=== PATIENT | female | born 1955 | race Caucasian/White ===

== ENCOUNTER 2016-10-25 05:15 | Emergency (ER) | payer OTHER ==
[~2016-10-25] VITALS: Ht 175.3 cm; Wt 65.8 kg
[2016-10-25 05:19] VITALS: BP 149/75
--- NOTE | 2016-10-25 05:26 | NUR ---
PT. AMBULATES TO ER BED 6
--- NOTE | 2016-10-25 05:26 | NUR ---
Patient being evaluated by physician at bedside.
--- NOTE | 2016-10-25 05:29 | NUR ---
61Y/F PT. PRESENTS TO ED WITH C/O BOTH FEET PAIN X 1 WK. AAO X4, AMBULATORY WITH STEADY GAIT. SKIN WARM AND DRY, NO INJURY. NO S/SX OF DISTRESS NOTED. ER MD MADE AWARE OF PT. STATUS.
[2016-10-25] MEDS ORDERED: KETOROLAC 60 MG/2 ML VIAL IM ONE (05:30)
[2016-10-25 05:54] VITALS: BP 149/75
--- NOTE | 2016-10-25 05:54 | NUR ---
Patient discharged with v/s stable. Written and verbal after care instructions given and explained. Patient alert, oriented and verbalized understanding of instructions. Ambulatory with steady gait. All questions addressed prior to discharge. ID band removed. Patient advised to follow up with PMD. Rx of MOTRIN 800 MG given. Patient educated on indication of medication including possible reaction and side effects. Opportunity to ask questions provided and answered.
== END 2016-10-25 05:54 | disposition home or self-care (01) ==
LOC: MED 05:15
DX: R60.0 Localized edema (principal); R03.0 Elevated blood-pressure reading, without diagnosis of hypertension
CPT/HCPCS: 96372; 99283; J1885

== ENCOUNTER 2016-11-22 18:23 | Emergency (ER) | payer OTHER ==
[~2016-11-22] VITALS: Ht 175.3 cm; Wt 65.8 kg
[2016-11-22 18:47] VITALS: BP 163/79
--- NOTE | 2016-11-22 19:50 | NUR ---
PT TAKEN TO BED 6
--- NOTE | 2016-11-22 19:54 | NUR ---
61 Y/O F W/C/O RIGHT ANKLE/FOOT PAIN/SWELLING SINCE LAST NOC. PT DENIES ANY FALL OR TRAUMA, WELL PAIN OR SOB. NO MED HX.
--- NOTE | 2016-11-22 20:09 | NUR ---
X-Ray at bedside.
--- NOTE | 2016-11-22 20:46 | NUR ---
Dr. Altman evaluating patient at bedside.
[2016-11-22] MEDS ORDERED: cefTRIAXone 1,000 MG in LIDOCAINE 1% ED 2.1 ML IM ONE (21:05)
[2016-11-22 21:10] VITALS: BP 151/74
== END 2016-11-22 21:10 | disposition home or self-care (01) ==
LOC: MED 18:23
DX: L03.115 Cellulitis of right lower limb (principal)
CPT/HCPCS: 99283; J0696; J2001

== ENCOUNTER 2017-06-22 14:51 | Emergency (ER) | payer OTHER ==
[~2017-06-22] VITALS: Ht 175.3 cm; Wt 65.8 kg
[2017-06-22 14:54] VITALS: BP 129/77
--- NOTE | 2017-06-22 15:10 | NUR ---
PT. BIB [facility] W/ C/O WEAKNESS. PT. AAOX4. PT. STATES " NOTHING IS WRONG WITH ME I JUST FELT A LITTLE WEAK BECAUSE MY SON MADE ME WALK FAR AND I GOT TIRED, BUT I DO NOT FEEL WEAK ANYMORE I FEEL FINE." PT. CAME IN WITH URINE AND POOP ON HER CLOTHES WHEN ASKED IF SHE WAS INCONTINENT SHE SAID " NO I AM NOT I JUST HAD TO GO TO THE BATHROOM REALLY BAD WHEN WE WERE WALKING AND I WAS TRYING TO HOLD IT ". RR EVEN AND UNLABORED , CLEAR LUNG SOUNDS, N/V/D NONE AT THE MOMENT, DENIES CHEST PAIN, DENIES SOB. ER. MADE AWARE. WILL CONTINUE TO MONITOR.
[2017-06-22] MEDS ORDERED: IBUPROFEN 800 MG TAB PO ONE (15:55)
[2017-06-22 16:16] VITALS: BP 117/93
--- NOTE | 2017-06-22 16:16 | NUR ---
Pt left hospital without papework. States " I dont wanna wait" Dr Yanes informed
== END 2017-06-22 16:16 | disposition home or self-care (01) ==
LOC: MED 14:51
DX: M25.562 Pain in left knee (principal)
CPT/HCPCS: 82948; 99283

== ENCOUNTER 2017-12-12 09:25 | Emergency (ER) | payer OTHER ==
[~2017-12-12] VITALS: Ht 175.3 cm; Wt 65.8 kg
[2017-12-12 09:31] VITALS: BP 158/87
--- NOTE | 2017-12-12 09:35 | NUR ---
PT AMBULATED TO BED 2
--- NOTE | 2017-12-12 09:36 | NUR ---
PT. CAME INTO THE ED DUE TO L SHOUDLER PAIN X THIS MORNING. PT. DENIES ANY INJURY, DENIES ANY CHEST PAIN, SOB. 12/05 L SHOULDER PAIN THAT RADIATES DOWN ARM. PT. STATES " I THINK I SLEPT IN IT WRONG ONLY". PT DENIES N/V/D. SWELLING NOTED TO L SHOULDER NO REDNESS. CAP REFILL LESS THAN 3 SEC. ER MD NOTIFIED. WILL CONTINUE TO MONITOR. SAFEGTY PRECAUTIONS IMPLEMETED. FAMILY MEMBERS AT BEDSIDE. WILL CONTINUE TO MONITOR.
[2017-12-12 09:45] VITALS: BP 158/87
--- NOTE | 2017-12-12 09:45 | NUR ---
Patient does not wish to proceed with medical care recommended by DR. VERDUGO. Patient given information related to possible complications, up to and including , which could occur as a result of leaving hospital at this time. Patient verbalizes understanding of risks involved leaving against medical advice. Patient has signed AMA form.
--- NOTE | 2017-12-12 09:45 | NUR ---
PT. DENIES CHANGING INTO GOWN AND DENIES GETTING AN XRAY DONE. DR VERDUGO AT BEDSIDE EVALUATING PT. PT. STATES " I JUST SLEPT ON IT WRONG IM LEAVING".
== END 2017-12-12 09:45 | disposition left against medical advice (07) ==
LOC: MED 09:25
DX: M25.512 Pain in left shoulder (principal)
CPT/HCPCS: 99281

== ENCOUNTER 2018-01-02 13:35 | Emergency (ER) | payer MEDICAID, OTHER ==
[~2018-01-02] VITALS: Ht 160 cm; Wt 70.8 kg
[2018-01-02 13:46] VITALS: BP 161/98
--- NOTE | 2018-01-02 13:50 | NUR ---
62 YO F BIBA FOR SYNCOPAL EPISODE AND FALL ON TO L SIDE. PT DENIES ANY INJURY OR LOC, PT IS REFUSING TREATMENT. PT IS DIFFICULT AND NO ALLOWING ACCUCHEK , EKG, OR ASSESMENT , PT WITH GAURDING OF L UPPER ARM AND MINIMAL MOVEMENT TO LUE. 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 RR EVEN AND UNLABORED, SKIN WITH MANY LEISIONS OF VARIOUS SIZES TO BILAT ARMS AND BACK. ER MD MADE AWARE.
--- NOTE | 2018-01-02 13:57 | NUR ---
DR SPEARS AT BEDSIDE FOR PT EVALUATION
--- NOTE | 2018-01-02 13:58 | NUR ---
PT IS REFUSINING ALL TX AT THIS TIME. PT STATES THAT SHE "FEELS FINE"
--- NOTE | 2018-01-02 14:00 | NUR ---
Patient does not wish to proceed with medical care recommended by DR. SPEARS. Patient given information related to possible complications, up to and including , which could occur as a result of leaving hospital at this time. Patient verbalizes understanding of risks involved leaving against medical advice. Patient has signed AMA form.
[2018-01-02 14:07] VITALS: BP 161/98
== END 2018-01-02 14:00 | disposition home or self-care (01) ==
LOC: MED 13:35
DX: R55 Syncope and collapse (principal)
CPT/HCPCS: 99283

== ENCOUNTER 2018-06-28 11:38 | Emergency (ER) | payer MEDICAID, OTHER ==
[~2018-06-28] VITALS: Ht 175.3 cm; Wt 77.1 kg
[2018-06-28 11:44] VITALS: BP 127/70
--- NOTE | 2018-06-28 11:53 | NUR ---
Patient transferred to bed 9 via wheelchair by tech. RN evaluating patient at bedside.
--- NOTE | 2018-06-28 12:00 | NUR ---
C/O WEAKNESS AND DIZZYNESS SINCE THIS MORNING. PT REPORTS NOT BEING ABLE TO WALK. PT DENIES PAIN, N/V/D OR FEVER. DENIES N/V/D; SKIN IS PINK/WARM/DRY; awake, alert. LUNGS CLEAR BL; HR EVEN AND REGULAR; PT DENIES ANY FEVER, CP, SOB, OR COUGH AT THIS TIME; PATIENT STATES PAIN OF 0/10 AT THIS TIME; VSS; PATIENT POSITIONED FOR COMFORT; HOB ELEVATED; BEDRAILS UP X2; BED DOWN. ER MD MADE AWARE OF PT STATUS.
--- NOTE | 2018-06-28 12:15 | NUR ---
pt's friend told me pt has been NPO FOR three days. offered pt juice, pt stated she is sleepy, she does not want to eat.
--- NOTE | 2018-06-28 13:37 | NUR ---
pt refused to take off her pants, per charge nurse, we have to clean her. cleaned pt. told pt we need urine sample for UA. urine cup at bedside.
--- NOTE | 2018-06-28 14:28 | NUR ---
CALLED LAB FOR LAB WORK, PER LAB, PT REFUSED TO DRAW BLOOD, DR. BAIN MADE AWARE.
--- NOTE | 2018-06-28 14:59 | NUR ---
JODIE, PT'S DAUGHTER [place] CALLED. INFORMED JODIE THAT PT WAS DISCHARGED, THAT WE WOULD PROVIDE HER WITH CLEAN CLOTHES AND SHE WOULD BE IN THE LOBBY.
[2018-06-28 15:54] VITALS: BP 125/68
--- NOTE | 2018-06-28 15:54 | NUR ---
Patient discharged with v/s stable. Written and verbal after care instructions given and explained. Patient verbalized understanding. Wheel Chair Assisted TO LOBBY . All questions addressed prior to discharge. Advised to follow up with PMD.
== END 2018-06-28 15:54 | disposition home or self-care (01) ==
LOC: MED 11:38
DX: R53.1 Weakness (principal); R42 Dizziness and giddiness
CPT/HCPCS: 82948; 93005; 99283

== ENCOUNTER 2019-11-30 19:05 | Emergency (ER) | payer MEDICAID, OTHER ==
[~2019-11-30] VITALS: Ht 172.7 cm; Wt 74.8 kg
== END 2019-11-30 19:30 | disposition left against medical advice (07) ==
LOC: MED 19:05
DX: R05 Cough (principal); Z53.21 Procedure and treatment not carried out due to patient leaving prior to being seen by health care provider